=== PATIENT | male | born 1965 | race Caucasian/White ===

== ENCOUNTER 2017-05-12 16:18 | Inpatient (IN) | payer OTHER ==
[~2017-05-12] VITALS: Ht 175.3 cm; Wt 99.8 kg
--- NOTE | ~2017-05-12 | HP ---
Unit #: [id number] #: [id number] Patient: BRITTNEY PALACIOS [id number] [place] [address] [id number] MR#: [id number] NAME: BRITTNEY PALACIOS. ROOM: 86 Age: 51 Sex: M Admission Date: 05/12/2017 : 1965 Attending Physician: Connor Hayes M.D. Admitting Physician: Connor Hayes M.D. Primary Care Physician: Generic Doctor Not In System HISTORY AND PHYSICAL Brittney is a 51-year-old male admitted on 05/12/2017 to [facility]. He was discharged prior to H and P being completed. Dictated by... Adelaide Higuera/sendy TD: 05/13/2017 21:14 JOB #: [id number] HISTORY AND PHYSICAL Page 1 of 1 X ILYA MCKEON APRN X HISTORY AND PHYSICAL
--- NOTE | ~2017-05-12 | PA ---
Unit #: [id number] #: [id number] Patient: BRITTNEY GLASER [id number] [place] [address] [id number] MR#: [id number] NAME: BRITTNEY GLASER. ROOM: 86 Age: 51 Sex: M Admission Date: 05/12/2017 : 1965 Date of Assessment: Attending Physician: Connor Hayes M.D. Admitting Physician: Connor Hayes M.D. Primary Care Physician: Generic Doctor Not In System PSYCHIATRIC ASSESSMENT INFORMANTS Patient reliable; OLOP, reliable. CHIEF COMPLAINT Drug use. HISTORY OF PRESENT ILLNESS Mr. Glaser is a 51-year-old man, who reports he is using OxyContin, Dilaudid, and benzodiazepines off the street. He claims he has had prescriptions for these medications in the past and also has a prescription for Neurontin "so I do not need that". He initially presented requesting inpatient detox services with no suicidal ideation, intent, or plan. PAST PSYCHIATRIC HISTORY The patient has had several episodes of inpatient psychiatric care and detox. This has included [facility], [facility]. FAMILY PSYCHIATRIC HISTORY There is a family history of chemical dependence. SOCIAL HISTORY The patient was unwilling to provide much social history. He appears to be alone and potentially homeless. Further social history will be obtained by her high school social science teacher. PAST MEDICAL HISTORY No chronic medical problems. MEDICATIONS None currently. ALLERGIES No known medication allergies. SUBSTANCE USE HISTORY As noted, the patient has extensive history of abusing opiates and benzodiazepines. MENTAL STATUS EXAMINATION The patient presented as a mildly disheveled man, who appeared his stated age. He was irritable, but cooperative with the examination. His speech was spontaneous and easily understood. His musculoskeletal examination Unit #: [id number] #: [id number] Patient: BRITTNEY GLASER was calm. His mood was irritable with a congruent affect. He was alert and fully oriented. His memory and concentration were intact. His thought processes were logical with no active psychosis. He denied any suicidal ideation, intent, or plan. Insight and judgment were fair. Fund of knowledge and abstraction were fair. ASSETS AND LIABILITIES The patient knows local resources and presents voluntarily for treatment. Liabilities include difficulty establishing and maintaining sobriety. ADMITTING DIAGNOSES AXIS I: Opiate dependence with withdrawal, uncomplicated. Benzodiazepine abuse. AXIS II: No diagnosis. AXIS III: Polysubstance withdrawal. AXIS IV: AXIS V: PSYCHIATRIC PLAN Mr. Lin was admitted overnight and placed on the opiate detox protocol. This morning, he expressed his dissatisfaction at the quality of our detox protocol, wanting to be placed on Suboxone and also wanted to "go somewhere where I could smoke". I discussed the dangers of detox with him as well as the significant medical risk of ongoing use of opiates and benzodiazepines that are purchased "off the street." However as he continued to deny suicidal ideation, intent, or plan, he was not qualified for involuntary treatment and was discharged at his request. Dictated by... Connor Hayes M.D. ASHOK/augustine TD: 05/13/2017 22:46 JOB #: [id number] PSYCHIATRIC ASSESSMENT Page 1 of 1 X Connor Hayes MD X PSYCHIATRIC ASSESSMENT
--- NOTE | ~2017-05-12 | DS ---
Unit #: [id number] #: [id number] Patient: BRITNTEY GLASER [id number] [facility] [address] [place] [address] [id number] MR#: [id number] NAME: BRITTNEY GLASER. ROOM: [facility] Age: 51 Sex: M Admission Date: 05/12/2017 : 1965 Discharge Date: 05/13/2017 Attending Physician: Connor Hayes M.D. Primary Care Physician: Generic Doctor Not In System DISCHARGE SUMMARY REASON FOR ADMISSION Mr. Glaser is a 51-year-old man with a history of opioid dependence. He came in requesting detox services without suicidal ideation, intent or plan. DIAGNOSTIC STUDIES LABORATORY RESULTS: Please see hospital chart. HOSPITAL COURSE The patient was admitted and placed on the opioid detox protocol. In the morning of my initial assessment, he expressed significant dissatisfaction with our hospital environment, stating that "he didn't need to be here" and that he wanted to go to another facility, where he could get "Suboxone and where I can smoke." As the patient lacks criteria for involuntary hospitalization, his discharge was accomplished at his request. DISCHARGE DIAGNOSES AXIS I: Opioid dependence with withdrawal, uncomplicated; benzodiazepine abuse. AXIS II: No diagnosis. AXIS III: Opioid withdrawal, uncomplicated. AXIS IV: AXIS V: DISCHARGE INSTRUCTIONS Follow up with [facility] at the patient's request. DISCHARGE MEDICATIONS None. CONDITION AT DISCHARGE Fair. PROGNOSIS Fair. DIET AND ACTIVITY Ad jey. Dictated by... Connor Hayes M.D. Unit #: [id number] #: [id number] Patient: BRITTNEY GLASER MRH/modl TD: 05/13/2017 12:49 JOB #: [id number] DISCHARGE SUMMARY Page 1 of 1 X Connor Hayes MD X DISCHARGE SUMMARY
[~2017-05-12 16:18] MED LIST: ALPRAZOLAM PO; METHADONE PO; NEURONTIN PO; TEMAZEPAM PO; UNIVASC7.5 MG PO
[2017-05-13 09:47] LABS: BASOPHIL% 0.6 % (0-2.5); EOSINOPHIL# 0.1 X10e3 (0-0.7); EOSINOPHIL% 2.3 % (0.0-7.0); HEMATOCRIT 40.1 % (38.0-50.0); HEMOGLOBIN 13.8 gm/dL (13.0-16.0); LYMPHOCYTE# 2.3 X10e3 (1.0-3.5); LYMPHOCYTE% 36.6 % (17.0-45.0); MEAN CELL VOLUME 89.8 FL (83-96); MEAN CORPUSCULAR HGB CONC 34.5 g/dL (30-36); MEAN PLATELET VOLUME 9.4 FL (6.5-11.5); MONOCYTE# 0.6 X10e3 (0-1.0); NEUTROPHIL# 3.1 X10e3 (1.5-7.1); NEUTROPHIL% 50.5 % (40-75); PLATELET COUNT 159 X10e3 (140-420); RED BLOOD COUNT 4.46 X10e (3.90-5.60); RED CELL DISTRIBUTION WIDTH 14.2 % (11.0-15.5); WHITE BLOOD COUNT 6.2 X10e3 (4.0-10.5)
[2017-05-13 09:57] LABS: DIFF IND NO
[2017-05-13 09:58] LABS: ALBUMIN SERUM 3.9 g/dL (3.5-5.0); BILIRUBIN,TOTAL 0.8 mg/dL (0.2-2.0); CALCIUM SERUM 8.8 mg/dL (8.4-10.2); GLOM FILT RATE Estimated 86.8 mL/min (>60); POTASSIUM 4.1 mmol/L (3.5-5.1); PROTEIN TOTAL SERUM 7.2 g/dL (6.0-8.3)
[2017-05-13 13:09] LABS: AMPHETAMINE NEG (NEG); BARBITURATES NEG (NEG); BENZODIAZEPINES POS (NEG); COCAINE POS (NEG); MARIJUANA NEG (NEG); OPIATES POS (NEG); TRICYCLIC ANTIDEPRESSANTS NEG (NEG); U METHADONE NEG (NEG)
== END 2017-05-13 12:20 | DRG 897 ==
LOC: P1E 18:14
PROVIDERS: Psychiatry & Neurology Psychiatry
PROC: HZ2ZZZZ Detoxification Services for Substance Abuse Treatment (ICD-10-PCS; principal; 2017-05-12)
DX: F11.23 Opioid dependence with withdrawal (principal); F19.10 Other psychoactive substance abuse, uncomplicated
CPT/HCPCS: 80053; 80307; 85025; 86592